=== PATIENT | female | born 1985 | race Caucasian/White ===

== ENCOUNTER 2022-03-24 17:59 | Emergency (ER) | payer SELFPAY ==
[~2022-03-24] VITALS: Ht 162.6 cm; Wt 65.0 kg
[2022-03-24 18:39] LABS: BASOPHILS % 0.7 % (0.0-2.0); EOSINOPHILS % 0.5 % (0.0-5.0); HEMATOCRIT. 34.6 % (36.0-48.0); HEMOGLOBIN. 12.2 g/dL (12.0-16.0); LYMPHOCYTES % 27.1 % (20.0-50.0); MEAN CORPUSCULAR HEMOGLOBIN 31.7 pg (28.0-32.0); MEAN CORPUSCULAR VOLUME 90.1 fL (81.0-99.0); MEAN PLATELET VOLUME 8.6 fl (7.4-10.4); NEUTROPHILS % 61.7 % (40.0-76.0); PLATELET 375 x1000/uL (130-400); RED BLOOD CELL COUNT 3.85 mill/uL (4.2-5.4); RED CELL DISTRIBUTION WIDTH 13.8 % (11.6-14.6)
[2022-03-24 18:49] LABS: CHLORIDE 105 mEq/L (98-107)
[2022-03-24 18:56] LABS: HCG SCREEN NEGATIVE
[2022-03-24 19:00] LABS: ETHANOL BLOOD < 10 mg/dL
[2022-03-24] MEDS ORDERED: LORAZEPAM 2MG/ML CPJ IM ONE (20:30)
[2022-03-25] MEDS ORDERED: LORAZEPAM 2MG/ML CPJ IM ONE (02:30)
[2022-03-25] MEDS ORDERED: DIPHENHYDRAMINE 50MG/ML VIAL IM ONE (02:30)
[2022-03-25] MEDS ORDERED: HALOPERIDOL LACTATE 5MG/ML VIAL IM ONE (02:30)
[2022-03-25 06:23] LABS: CLARITY URINE CLEAR (CLEAR); COLOR URINE YELLOW (YELLOW); KETONES URINE TRACE (NEGATIVE); LEUKOCYTE ESTERASE URINE 1+ (NEGATIVE); NITRITE URINE NEGATIVE (NEGATIVE); OCCULT BLOOD URINE NEGATIVE (NEGATIVE); PROTEIN URINE TRACE (NEGATIVE); SPECIFIC GRAVITY URINE 1.032 (1.005-1.030)
[2022-03-25 06:57] LABS: *BARBITURATES SCREEN URINE NEGATIVE (NEGATIVE); *BENZODIAZEPINES SCREEN URINE NEGATIVE (NEGATIVE); *COCAINE SCREEN URINE NEGATIVE (NEGATIVE); CANNABINOID URINE SCREEN NEGATIVE (NEGATIVE); METHADONE URINE SCREEN NEGATIVE (NEGATIVE); OPIATES URINE SCREEN NEGATIVE (NEGATIVE); PHENCYCLIDINE URINE SCREEN NEGATIVE (NEGATIVE)
[2022-03-25 07:04] LABS: *AMPHETAMINES SCREEN URINE PRESUMTIVE POSITIVE (NEGATIVE)
[2022-03-25] MEDS: ARIPIPRAZOLE 5MG TABLET PO SCH (09:53)
[2022-03-25] MEDS: DIVALPROEX SODIUM 500MG DR TABLET PO SCH ×2 (09:53→17:26)
[2022-03-26] MEDS: ARIPIPRAZOLE 5MG TABLET PO SCH (09:45)
[2022-03-26] MEDS: DIVALPROEX SODIUM 500MG DR TABLET PO SCH ×2 (09:45→18:39)
[2022-03-27] MEDS: DIVALPROEX SODIUM 500MG DR TABLET PO SCH (09:07)
[2022-03-27] MEDS: ARIPIPRAZOLE 5MG TABLET PO SCH (09:07)
[2022-03-27] MEDS ORDERED: CEPH500C2 MT (12:30)
[2022-03-27 17:00] VITALS: BP 104/72
== END 2022-03-27 17:31 | disposition home or self-care (01) ==
LOC: ER 17:59
DX: R44.3 Hallucinations, unspecified (principal); R45.851 Suicidal ideations; N30.00 Acute cystitis without hematuria; T43.621A Poisoning by amphetamines, accidental (unintentional), initial encounter; Y92.9 Unspecified place or not applicable; Z59.00 Homelessness unspecified; Z20.822 Contact with and (suspected) exposure to COVID-19
CPT/HCPCS: 36415; 80053; 80305; 80307; 80320; 80329; 81001; 81025; 84703; 85025; 96372; 99285; C9803; J1200; J1630; J2060; U0003; U0005; G0480